=== PATIENT | female | born 1960 | race African-American/Black ===

== ENCOUNTER 2017-08-20 03:59 | Emergency (ER) | payer OTHER ==
[~2017-08-20] VITALS: Ht 149.9 cm; Wt 67.6 kg
[~2017-08-20 03:59] MED LIST: ALBUTEROL2.5 MG/0.5; AMBIEN10 MG PO; DOXYCYCLINE HY100 MG PO; KOMBIGLYZE XR1 EACH PO; METFORMIN HCL500 MG PO; NEXIUM40 MG PO; PANTOPRAZOLE SO40 MG PO; PREDNISONE10 MG PO; SPIRIVA18 MCG; TYLENOL PO; VALIUM5 MG PO; VITAMIN D400 UNI1 PO
== END 2017-08-20 05:25 | disposition left against medical advice (07) ==
LOC: ER 03:59
DX: M54.5 Low back pain (principal)